=== PATIENT | female | born 1960 ===

== ENCOUNTER 2021-04-20 11:09 | Outpatient (REF) | payer MEDICARE, MEDICAID, SELFPAY ==
--- NOTE | ~2021-04-20 | XR_ITS ---
EXAMINATION: XR KNEE, LEFT CLINICAL INFORMATION: Pain COMPARISON: None TECHNIQUE: Four views of the left knee. FINDINGS: Bone alignment is normal. No fracture or dislocation is seen. The femoral tibial joints are normal. There are small osteophytes at the patellofemoral joint. There is no joint effusion. XR/XR knee LT 4V IMPRESSION: Small osteophytes at the patellofemoral joint otherwise unremarkable exam.
== END 2021-04-20 11:10 | disposition home or self-care (01) ==
LOC: HO.XRAY 11:09
PROVIDERS: PCP Internal Medicine Geriatric Medicine; Visit Provider Internal Medicine Geriatric Medicine
DX: M25.562 Pain in left knee (principal)
CPT/HCPCS: 73564

== ENCOUNTER 2021-06-24 10:41 | Outpatient (REF) | payer MEDICARE, MEDICAID, SELFPAY ==
--- NOTE | ~2021-06-24 | MM_ITS ---
EXAMINATION: MM SCREENING DIGITAL BREAST TOMOSYNTHESIS, BILATERAL CLINICAL INFORMATION: Screening. Asymptomatic. The lifetime risk of breast cancer based on the Tyrer-Cuzick Model is 11.2%. COMPARISON: Mammography: January 05, 2018 and studies dating back to December 09, 2016 TECHNIQUE: Digital breast tomosynthesis is performed in both the craniocaudal and mediolateral oblique views along with computer-aided detection (CAD). Synthesized 2D images are generated from the tomosynthesis. FINDINGS: The breasts are heterogeneously dense, which may obscure small masses (ACR BI-RADS breast composition Category c). There are no significant masses, abnormal calcifications, or other abnormalities. MM/MM tomosynthesis screening BI IMPRESSION: There are no significant changes from prior study. ASSESSMENT: BI-RADS 1: Negative RECOMMENDATION: Routine annual mammography screening. This patient's information was entered into a reminder system with a target due date for their next mammogram.
== END 2021-06-24 10:42 | disposition home or self-care (01) ==
LOC: HO.MAMMO 10:41
PROVIDERS: Visit Provider Internal Medicine Geriatric Medicine
DX: Z12.31 Encounter for screening mammogram for malignant neoplasm of breast (principal)
CPT/HCPCS: 77063; 77067

== ENCOUNTER 2021-07-12 11:53 | Outpatient (REF) | payer MEDICARE, MEDICAID, SELFPAY ==
--- NOTE | ~2021-07-12 | US_ITS ---
EXAMINATION: US DIAGNOSTIC ULTRASOUND BREAST, LEFT CLINICAL INFORMATION: Recent diffuse left breast pain, now resolved. Slight puckering lower areola at clinical exam. No palpable concern noted by patient. No discharge. Recent mammography unremarkable. TC score 11%. COMPARISON: Digital breast tomosynthesis 06/24/2021, 01/05/2018, digital mammography 12/18/2017, and outside digital mammography 12/09/2016 ([place]). TECHNIQUE: Ultrasound of the left breast is performed including all 4 quadrants and retroareolar region. Grayscale imaging and color Doppler are performed without and with harmonics. FINDINGS: There is no focal suspicious finding. There is no cystic or solid mass, architectural abnormality, duct ectasia, or edema in the soft tissue planes. Review of recent mammography shows no significant change from prior studies. Results are discussed with the patient at time of visit. Patient notes no pain today and no discharge or palpable concern. Patient to follow-up with her provider as needed. If clinically indicated, referral for surgical consult may be considered for further assessment. US/US breast LT limited IMPRESSION: Normal study. ASSESSMENT: BI-RADS 1: Negative RECOMMENDATION: 1. Patient should be managed based on the clinical impression. If clinically indicated, further evaluation may be considered with surgical consult. Decision to proceed with biopsy should be based on clinical grounds and degree of clinical concern. 2. Otherwise, routine annual screening mammography. This patient's information was entered into a reminder system with a target due date for their next mammogram.
== END 2021-07-12 11:54 | disposition home or self-care (01) ==
LOC: HO.MAMMO 11:53
PROVIDERS: Visit Provider Internal Medicine Geriatric Medicine
DX: N64.4 Mastodynia (principal)
CPT/HCPCS: 76642

== ENCOUNTER 2021-09-30 10:23 | Outpatient (REF) | payer MEDICARE, MEDICAID, SELFPAY ==
--- NOTE | ~2021-09-30 | XR_ITS ---
EXAMINATION: XR CHEST CLINICAL INFORMATION: Shortness of breath. History of Covid 19 infection. COMPARISON: CXR from 09/24/2019 TECHNIQUE: 2 views of the chest were obtained. FINDINGS: Lungs are well expanded and clear. No consolidation or pleural effusion. Cardiac silhouette is normal in size. Sternotomy wires are intact. Implantable cardioverter defibrillator generator with intact transvenous leads extending to the right atrium, right ventricle and along the coronary sinus to the left ventricle. There is mild hyperkyphosis of the chronically degenerated thoracic spine. XR/XR chest 2V IMPRESSION: No evidence of pneumonia. No acute cardiopulmonary findings compared to 09/24/2019.
== END 2021-09-30 10:24 | disposition home or self-care (01) ==
LOC: HO.XRAY 10:23
PROVIDERS: PCP Internal Medicine Geriatric Medicine; Visit Provider Internal Medicine Geriatric Medicine
DX: R06.02 Shortness of breath (principal); Z86.16 Personal history of COVID-19
CPT/HCPCS: 71046

== ENCOUNTER 2022-02-08 11:28 | Outpatient (REF) | payer MEDICARE, MEDICAID, SELFPAY ==
[2022-02-08 14:20] LABS: CT PCR NOT DETECTED (Not Detect.); NG PCR NOT DETECTED (Not Detect.)
[2022-02-11 04:32] LABS: HPV mRNA E6/E7 rflx Not Detected (Not Detected)
== END 2022-02-08 11:29 | disposition home or self-care (01) ==
LOC: HO.LAB 11:28
PROVIDERS: Visit Provider Advanced Practice Midwife
DX: Z01.419 Encounter for gynecological examination (general) (routine) without abnormal findings (principal); Z11.51 Encounter for screening for human papillomavirus (HPV); Z20.2 Contact with and (suspected) exposure to infections with a predominantly sexual mode of transmission
CPT/HCPCS: 87491; 87591; 87624; 88142

== ENCOUNTER 2022-03-23 14:21 | Outpatient (REF) | payer MEDICARE, MEDICAID, SELFPAY ==
--- NOTE | ~2022-03-23 | US_ITS ---
EXAMINATION: US PELVIS CLINICAL INFORMATION: Pelvic and perineal pain COMPARISON: None TECHNIQUE: Ultrasound of the pelvis is performed using both transabdominal and transvaginal transducers along with Doppler. Transvaginal imaging is performed due to inadequate visualization transabdominally. FINDINGS: Uterus: The uterus is anteverted and measures 6.4 x 2.4 x 3.4 cm. The estimated cervical length is approximately 2.4 cm. There are some small nabothian cysts. The cervix otherwise within normal limits The double wall endometrial thickness is 3 mm. There is a small amount of fluid within the endometrial cavity. This outlines a smooth endometrium The uterine contour is smooth. There is some heterogeneity of the myometrium without a discrete mass. No visible fibroid. Adnexa: The right ovary is visualized. There is no suspicious color signal. There is a spherical structure in the left adnexa with a bright echogenic rim and some attenuation of sound. No suspicious color signal. There is no pelvic ascites or fluid collection. No additional suspicious adnexal mass Right ovary measures 1.9 x 0.9 x 1.2 cm. There is an approximately 1 cm cyst with no suspicious features which does not require any further evaluation There is a circumscribed spherical 0.7 cm structure in the left adnexa with a bright echogenic rim that measures 0.8 cm. No measurable solid left adnexal mass elsewhere. US/US pelvic and transvaginal IMPRESSION: No suspicious abnormality of the uterus or right ovary. There is a circumscribed spherical structure in the left adnexa with a bright rim. I doubt this is of clinical significance. Depending upon the patient's symptoms a follow-up study may be helpful to confirm stability
== END 2022-03-23 14:22 | disposition home or self-care (01) ==
LOC: HO.HMGCX 14:21
PROVIDERS: PCP Internal Medicine Geriatric Medicine; Visit Provider Advanced Practice Midwife
DX: R10.2 Pelvic and perineal pain (principal)
CPT/HCPCS: 76830; 76856

== ENCOUNTER → 2022-04-11 11:19 | Outpatient (BNVA) | payer MEDICARE, MEDICAID, SELFPAY | PROVIDERS: PCP Internal Medicine Geriatric Medicine; Visit Provider Advanced Practice Midwife | DX: Z71.2 Person consulting for explanation of examination or test findings (principal); R10.2 Pelvic and perineal pain; R93.5 Abnormal findings on diagnostic imaging of other abdominal regions, including retroperitoneum | CPT/HCPCS: 99212 ==

== ENCOUNTER 2023-01-26 11:41 | Outpatient (REF) | payer MEDICARE, MEDICAID, SELFPAY ==
--- NOTE | ~2023-01-26 | XR_ITS ---
EXAMINATION: XR ANKLE, LEFT CLINICAL INFORMATION: Pain for 2 weeks. No injury. COMPARISON: None available. TECHNIQUE: AP, lateral, and mortise views of the left ankle. XR/XR ankle LT min 3V FINDINGS/IMPRESSION: Tiny calcification associated with the insertion of the Achilles tendon on the calcaneus may represent small calcific tendinitis versus calcific bursitis. No fracture appreciated. Alignment is anatomic. Joint spaces are maintained. No joint effusion.
--- NOTE | ~2023-01-26 | XR_ITS ---
EXAMINATION: XR KNEE, RIGHT XR KNEE, LEFT CLINICAL INFORMATION: Bilateral knee pain for 2 weeks. COMPARISON: None available. TECHNIQUE: Four views of the right knee. Four views of the left knee. FINDINGS: Right: Bones and soft tissues appear unremarkable. No fracture or joint effusion appreciated. Alignment is anatomic. Joint spaces are well maintained. No abnormal soft tissue calcification. Left: Bones and soft tissues appear unremarkable. No fracture or joint effusion appreciated. Alignment is anatomic. Joint spaces are well maintained. No abnormal soft tissue calcification. XR/XR knee LT 4V IMPRESSION: Normal plain film examinations of the knees.
--- NOTE | ~2023-01-26 | XR_ITS ---
EXAMINATION: XR KNEE, RIGHT XR KNEE, LEFT CLINICAL INFORMATION: Bilateral knee pain for 2 weeks. COMPARISON: None available. TECHNIQUE: Four views of the right knee. Four views of the left knee. FINDINGS: Right: Bones and soft tissues appear unremarkable. No fracture or joint effusion appreciated. Alignment is anatomic. Joint spaces are well maintained. No abnormal soft tissue calcification. Left: Bones and soft tissues appear unremarkable. No fracture or joint effusion appreciated. Alignment is anatomic. Joint spaces are well maintained. No abnormal soft tissue calcification. XR/XR knee RT 4V IMPRESSION: Normal plain film examinations of the knees.
--- NOTE | ~2023-01-26 | XR_ITS ---
EXAMINATION: XR LUMBOSACRAL SPINE CLINICAL INFORMATION: Abdominal pain for 2 weeks. No injury. COMPARISON: None available. TECHNIQUE: Three views of the lumbosacral spine. FINDINGS: The vertebral bodies and posterior elements appear unremarkable. The disc spaces appear preserved. Mild lumbar levocurvature. The paraspinal soft tissues are normal. Partially imaged median sternotomy and pulse generator device leads. XR/XR lumbar spine 2-3V IMPRESSION: Unremarkable examination.
== END 2023-01-26 11:42 | disposition home or self-care (01) ==
LOC: HO.HHCX 11:41
PROVIDERS: Visit Provider Internal Medicine Geriatric Medicine
DX: M25.561 Pain in right knee (principal); M25.562 Pain in left knee; R60.0 Localized edema; M54.50 Low back pain, unspecified; M25.572 Pain in left ankle and joints of left foot
CPT/HCPCS: 72100; 73564; 73610

== ENCOUNTER 2023-03-03 13:34 | Outpatient (REF) | payer MEDICARE, MEDICAID, SELFPAY | END 2023-03-03 13:35 | disposition home or self-care (01) | LOC: HO.LNP 13:34 | PROVIDERS: PCP Internal Medicine Geriatric Medicine; Visit Provider Advanced Practice Midwife | DX: Z01.419 Encounter for gynecological examination (general) (routine) without abnormal findings (principal); R35.0 Frequency of micturition | CPT/HCPCS: 87086; G0101 ==

== ENCOUNTER 2023-03-03 13:34 | Outpatient (AMB) | payer MEDICARE, MEDICAID, SELFPAY ==
[2023-03-03 13:56] VITALS: BP 110/70; BMI 35.7
--- NOTE | 2023-03-03 13:56 | MHC.OFFVIS ---
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 Scribed for PAUL Calvillo by Afia Lucas medical information officer, on 03/03/2023 at 2:27 pm EST. 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 Patient admits she tries to eat a healthy diet but does not include Calcium and Vitamin D. She stays active with exercise. Hx of osteoarthritis; was prescribed Calcium Rx in the past and upset her stomach. Complains of frequent urination. Admits to drinking 2 cups of coffee and half a can of soda a day. Denies vaginal itching and irritation. Denies family hx of colon and ovarian cancer. Last pap smear 02/08/22 Last mammogram 06/24/21 UTD on colonoscopy. PFSH Medical History Asthma Cardiac pacemaker Cardiomegaly Frequency of urination H/O bipolar disorder High cholesterol History of fibromyalgia Hx of migraine headaches Myasthenia gravis Osteoarthritis Systolic dysfunction Surgical History H/O thymectomy Hx of tubal ligation Family History Paternal Grandmother History of breast cancer Social History Alcohol intake: never Patient Tobacco Use Status: Never used Tobacco Female Reproductive History Menstrual Age of Menarche: 12 control method: permanent sterilization Total pregnancies: 5 Full term: 4 Number of Living Children: 4 Ab spontaneous: 1 Date of last pap smear: 02/08/22 (negative) Date of Mammogram: 06/24/21 Physical Exam Vital Signs: Last Vital Signs BP 110/70 03/03/23 13:56 BMI result Body Mass Index 35.7 Const General: cooperative, healthy appearing, no acute distress, well developed and alert Orientation/consciousness: patient oriented x3 HEENT Head: Yes normal to inspection Eyes General: appearance normal, both eyes and all related structures Neck Neck: Yes normal visual inspection Thyroid: Thyroid normal Chest Chest palpation & inspection: normal inspection of the chest Breast/axilla inspection: normal inspection of the breasts (no puckering, dimpling, peau de orange, retraction, discharge, masses) Breast/axilla palpation: normal palpation of the breasts Resp Effort & Inspection: normal respiratory effort GI Inspection: Yes normal to inspection Palpation (GI): Soft to palpation (to palpation) Rectal Exam - Female: deferred General: Yes bladder normal to inspection External Female Exam: normal external appearance and other (urethral caruncle) Speculum Exam - Vagina: normal appearance of the vagina, normal palpation and normal vaginal discharge Speculum Exam - Cervix: normal appearance of the cervix and normal palpation Bimanual exam- vagina & uterus: normal palpation and normal palpation Bimanual Exam- Adnexa, other: normal adnexae and no masses Skin General skin exam: no rashes or lesions noted Neuro General: patient oriented x3 Cognition (Neuro): normal cognition Extrem General: Yes normal to inspection Psych Attitude: cooperative Thought process: Normal thought process present Results AMB Urinalysis Dipstick UR Leukocytes Negative Last Edit by Salma Allen CMA on 03/03/23 15:10 UR Nitrite Negative Last Edit by Salma Allen CMA on 03/03/23 15:10 UR Urobilinogen Normal Last Edit by Salma Allen CMA on 03/03/23 15:10 UR Protein Negative Last Edit by Salma Allen CMA on 03/03/23 15:10 UR Ph 6.5 Last Edit by Salma Allen CMA on 03/03/23 15:10 UR Blood Moderate Last Edit by Salma Allen CMA on 03/03/23 15:10 UR Specific [place] 1.015 Last Edit by Salma Allen CMA on 03/03/23 15:10 UR Ketone Negative Last Edit by Salma Allen CMA on 03/03/23 15:10 UR Bilirubin Negative Last Edit by Salma Allen CMA on 03/03/23 15:10 UR Glucose Negative Last Edit by Salma Allen CMA on 03/03/23 15:10 Results Reviewed Results Reviewed: Laboratory Last Values Urine pH (Clinic) 6.5 03/03/23 15:09 Specific [place] (Clinic) 1.015 03/03/23 15:09 Ur Protein (Clinic) Negative 03/03/23 15:09 Ur Ketones (Clinic) Negative 03/03/23 15:09 Urine Blood (Clinic) Moderate 03/03/23 15:09 Urine Nitrite Negative 03/03/23 15:09 Urine Bilirubin (Clinic) Negative 03/03/23 15:09 Urobilinogen (Clinic) Normal 03/03/23 15:09 Leukocyte Esterase (Clinic) Negative 03/03/23 15:09 Urine Glucose (Clinic) Negative 03/03/23 15:09 Assessment & Plan Assessment & Plan (1) Encounter for annual routine gynecological examination: Code(s): Z01.419 - Encounter for gynecological examination (general) (routine) without abnormal findings Plan: Discussed: Current recommendations for pap smears per ASCCP guidelines. Breast awareness and periodic self breast exams. Encouraged yearly mammograms. Mammogram ordered. Maintaining a healthy lifestyle including a well balanced diet including Calcium and Vitamin D and routine exercise. Recommend consulting with pharmacist for Calcium and Vitamin D supplements that are covered by insurance. Contact office to have supplements prescribed. Encourages to stop drinking caffeine, carbonate drinks and artificial sweeteners. Hydrate well with water only. Referral sent to Urologist. Contact office with any PMB. All of her questions and concerns were addressed to the best of my ability RTO in 1 year for AG. (2) Frequency of urination: Code(s): R35.0 - Frequency of micturition Orders: Orders MM tomosynthesis screening BI Today Z12.31 - Encounter for screening mammogram for malignant neoplasm of breast Urine Culture Today R35.0 - Frequency of micturition Referrals Urology Referral R35.0 - Frequency of micturition Coding Level of Care Code Est Pt Prev Care 40-64y(23612) Diagnoses Encounter for annual routine gynecological examination Z01.419 Frequency of urination R35.0
== END 2023-03-03 14:47 | disposition home or self-care (01) ==
LOC: HO.HWS 13:34
PROVIDERS: PCP Internal Medicine Geriatric Medicine; Visit Provider Advanced Practice Midwife
DX: Z01.419 Encounter for gynecological examination (general) (routine) without abnormal findings (principal); R35.0 Frequency of micturition
CPT/HCPCS: G0101

== ENCOUNTER 2023-03-24 12:54 | Outpatient (REF) | payer MEDICARE, MEDICAID, SELFPAY ==
--- NOTE | ~2023-03-24 | MM_ITS ---
EXAMINATION: MM SCREENING DIGITAL BREAST TOMOSYNTHESIS, BILATERAL CLINICAL INFORMATION: Screening. Asymptomatic. COMPARISON: Mammography: This study is compared with prior exams dating back to 2018. TECHNIQUE: Digital breast tomosynthesis is performed in both the craniocaudal and mediolateral oblique views along with computer-aided detection (CAD). Synthesized 2D images are generated from the tomosynthesis. FINDINGS: There are scattered areas of fibroglandular density (ACR BI-RADS breast composition Category b). There are no significant masses, abnormal calcifications, or other abnormalities. A pacemaker overlies the superior aspect breast. There are tissue markers present in each breast from prior benign percutaneous biopsies. MM/MM tomosynthesis screening BI IMPRESSION: No mammographic evidence of malignancy. ASSESSMENT: BI-RADS BI-RADS 2 - Benign Findings RECOMMENDATION: Routine annual mammography screening. 1 year F/U This examination should not preclude the clinical evaluation of a suspicious palpable abnormality. This patient's information was entered into a reminder system with a target due date for their next mammogram.
== END 2023-03-24 12:55 | disposition home or self-care (01) ==
LOC: HO.MAMMO 12:54
PROVIDERS: PCP Internal Medicine Geriatric Medicine; Visit Provider Advanced Practice Midwife
DX: Z12.31 Encounter for screening mammogram for malignant neoplasm of breast (principal)
CPT/HCPCS: 77063; 77067

== ENCOUNTER → 2023-03-24 13:15 | Outpatient (BNV) | payer MEDICARE, MEDICAID, SELFPAY | PROVIDERS: PCP Internal Medicine Geriatric Medicine; Visit Provider Radiology Diagnostic Radiology | DX: Z12.31 Encounter for screening mammogram for malignant neoplasm of breast (principal) | CPT/HCPCS: 77063; 77067 ==

== ENCOUNTER 2023-04-27 10:44 | Outpatient (AMB) | payer MEDICARE, MEDICAID, SELFPAY ==
--- NOTE | 2023-04-27 10:46 | MHC.OFFVIS ---
Intake Intake Visit Reasons: Frequency of micturition Allergies Accutane Allergy (Unknown, Uncoded 04/27/23 10:46) Unknown latex Allergy (Unknown, Uncoded 04/27/23 10:46) Unknown Medication List - Last Reconciled 04/27/23 by Susana Gaviria MD acetazolamide mg PO albuterol sulfate 90 mcg/actuation (Ventolin HFA) inhalation apixaban (Eliquis) mg PO ONCE sxdhchfhid-znqztvudhqtvn-omiz 50-325-40 mg caps PO ONCE PRN diclofenac sodium 1% topical doxycycline monohydrate mg PO DAILY gabapentin mg PO DAILY lamotrigine mg PO DAILY losartan mg PO DAILY montelukast mg PO DAILY mycophenolate mofetil PO mycophenolate mofetil mg PO omeprazole mg PO DAILY pravastatin mg PO DAILY pyridostigmine bromide mg PO ONCE quetiapine mg PO DAILY sotalol mg PO ONCE spironolactone mg PO DAILY tramadol mg PO DAILY valacyclovir mg PO DAILY vibegron (Gemtesa) 75 mg PO DAILY HPI HPI Comments History of Present Illness Details Malissa is a 62-year-old female who presents today to the office to establish as a new patient for an evaluation of frequency micturition. 04/27/2023? She is present today for an evaluation of frequency of micturition. Patient has a past medical history of significant for cardiac pacemaker. She has a history of fibromyalgia, history of osteoarthritis, and history of bipolar. She was referred to the urology office by her Rate Clerk. She mentions having urinary frequency. Patient states that she is urinating 3-4 times for every ? an hour during the day. She reports nocturia x 3. Patient also has on and off mild urine leakage at this time. She is wearing pads occasionally when she goes out. I reviewed the urine culture results from 03/03/2023 which came back < 10,000 cfu/ml. Evaluation today?UA? leukocytes: negative; blood: 1 +; bladder scan PVR: 13 mL. Plan: Gemtesa 75 mg daily was ordered. CTAP +/- IV was ordered Follow-up in office Cystoscopy. [facility] Medical History Frequency of urination Cardiac pacemaker Systolic dysfunction High cholesterol Cardiomegaly History of fibromyalgia Osteoarthritis H/O bipolar disorder Myasthenia gravis Hx of migraine headaches Asthma Surgical History Hx of tubal ligation H/O thymectomy Family History Paternal Grandmother History of breast cancer Social History Alcohol intake: never Patient Tobacco Use Status: Never used Tobacco Female Reproductive History Menstrual Age of Menarche: 12 Review of Systems Const All systems reviewed & are unremarkable except as noted in HPI and below Reports no additional complaints Eyes Reports no additional complaints ENT Reports no additional complaints Card Denies dyspnea Resp Denies cough and Denies dyspnea GI Reports no additional complaints Reports no additional complaints Musc Reports no additional complaints Skin/Breast Denies rash and Denies unusual bruising Neuro Reports no additional complaints Psych Reports no additional complaints Endo Reports no additional complaints Per/Lymph Reports no additional complaints Aller/Immun Reports no additional complaints Physical Exam Const General: cooperative, healthy appearing and no acute distress Orientation/consciousness: patient oriented x3 HEENT Head: Yes normal to inspection, Yes normocephalic and Yes atraumatic Eyes Conjunctivae: conjunctivae normal Neck Neck: Yes normal visual inspection and Yes trachea midline Chest Chest palpation & inspection: normal inspection of the chest Resp Effort & Inspection: normal respiratory effort Cardio Rate: regular rate GI Inspection: Yes normal to inspection Palpation (GI): Soft to palpation Skin General skin exam: no rashes or lesions noted Neuro General: patient oriented x3 Extrem General: No edema Psych Appearance: grossly normal Office Procedures Post Void Residual Post Residual Void Post Void Residual (PVR): 13 [id number] Void Residual by ultrasound Results AMB Urinalysis, Automated UA Leukoctes Rahul/uL Last Edit by Brigida Garcia CMA on 04/27/23 11:02 UA Nitrite Last Edit by Brigida Garcia CMA on 04/27/23 11:02 UA Urobilinogen 0.2 mg/dL Last Edit by Brigida Garcia CMA on 04/27/23 11:02 UA Protein mg/dL Last Edit by Brigida Garcia CMA on 04/27/23 11:02 UA pH 5.0 Last Edit by Brigida Garcia CMA on 04/27/23 11:02 UA Blood 25 Aj/uL Last Edit by Brigida Garcia CMA on 04/27/23 11:02 UA Specific [place] 1.025 Last Edit by Brigida Garcia CMA on 04/27/23 11:02 UA Ketone Last Edit by Brigida Garcia CMA on 04/27/23 11:02 UA Bilirubin mg/dL Last Edit by Brigida Garcia CMA on 04/27/23 11:02 UA Glucose mg/dL Last Edit by Brigida Garcia CMA on 04/27/23 11:02 Results Reviewed Results Reviewed: Laboratory Last Values Urine pH (Auto) 5.0 04/27/23 11:00 Specific [place] (Auto) 1.025 04/27/23 11:00 Urine Blood (Auto) 25 Aj/uL 04/27/23 11:00 Urine Urobilinogen (Auto) 0.2 mg/dL 04/27/23 11:00 Ordered:? Urine Culture? Procedure?Result?Verified?Site ? Urine Culture? Final?03/05/23-1249 ? Report Result?< 10,000 cfu/ml. Assessment & Plan Assessment & Plan (1) Frequency of urination: Code(s): R35.0 - Frequency of micturition (2) Pelvic pain in female: Code(s): R10.2 - Pelvic and perineal pain Plan Gemtesa 75 mg daily was ordered. CTAP +/- IV was ordered Follow-up in office Cystoscopy. Orders: Orders AMB Urinalysis Automated 04/27/23 R35.0 - Frequency of micturition AMB Post Void Residual by ultrasound 04/27/23 R35.0 - Frequency of micturition Medications: New vibegron (Gemtesa) 75 mg PO DAILY 90 tabs 1RF Patient Instructions: The patient had an opportunity to ask questions regarding treatment plan. All questions were answered. Imaging, Laboratory studies and physical exam results were discussed and reviewed in detail. No major barriers to understanding were identified. The patient expressed understanding and agreement with the above treatment plan.? ? ? The patient is aware they should contact our office by phone for worsening of their current condition or the appearance of new symptoms. Compliance is encouraged with any medications and followup testing that is ordered.? ? ? It is a privilege to be allowed the opportunity to participate in the urologic care of your patient. If you have any questions or concerns regarding treatment for the above conditions please do not hesitate to contact me. The office telephone contact is [phone].? ? ? This note is constructed in part using voice recognition software. While every effort has been made to ensure accuracy feeder operator errors may have been included.? ? ? Yours sincerely,? ? ? Susana Gaviria MD? ? Coding Level of Care Code New Pt Level 4 (82153) Diagnoses Frequency of urination R35.0 Pelvic pain in female R10.2 CPT Codes Post Residual Void - PVR CPT Code: 56741-Qvut Void Residual by ultrasound ([id number])
== END 2023-04-27 12:03 | disposition home or self-care (01) ==
PROVIDERS: PCP Internal Medicine Geriatric Medicine; Visit Provider Urology
DX: R35.0 Frequency of micturition (principal); R10.2 Pelvic and perineal pain
CPT/HCPCS: 99204

== ENCOUNTER → 2023-04-27 10:44 | Outpatient (BNVA) | payer MEDICARE, MEDICAID, SELFPAY | PROVIDERS: PCP Internal Medicine Geriatric Medicine; Visit Provider Urology | DX: R35.0 Frequency of micturition (principal); R10.2 Pelvic and perineal pain | CPT/HCPCS: 51798; 81003; 99202 ==

== ENCOUNTER 2023-07-10 09:50 | Outpatient (REF) | payer MEDICARE, MEDICAID, SELFPAY ==
--- NOTE | ~2023-07-10 | CT_ITS ---
EXAMINATION: CT ABDOMEN AND PELVIS WITHOUT AND WITH CONTRAST CLINICAL INFORMATION: Hematuria. COMPARISON: Renal ultrasound dated 07/12/2023; abdominal ultrasound dated 05/07/2019. TECHNIQUE: Multidetector volumetric imaging was performed of the abdomen and pelvis before and after the IV administration of 85 mL of Omnipaque 350 intravenous contrast. Sagittal and coronal reformatted images were obtained on the technologist's workstation. This CT examination was performed using dose optimization techniques as appropriate, variously including the following: *Automated exposure control *Adjustment of mA and/or kV according to patient size (this includes techniques or standardized protocols for targeted exams where dose is matched to indication/reason for exam; i.e. extremities or head) *Use of iterative reconstruction technique DLP: 6065 mGy-cm FINDINGS: LUNG BASES: The visualized lung bases are unremarkable. Pacemaker leads are noted. LIVER, GALLBLADDER, AND BILIARY TREE: The liver is normal in size, shape, and attenuation. There are several simple appearing hepatic cysts again seen, consistent with prior ultrasound findings. No new focal hepatic lesion or biliary ductal dilatation is present. The gallbladder is unremarkable with no evidence of radiopaque gallstones, gallbladder wall thickening, or obvious pericholecystic inflammatory changes. PANCREAS: Unremarkable SPLEEN: Unremarkable ADRENAL GLANDS: Unremarkable KIDNEYS AND URETERS: The kidneys are normal in size, shape, and attenuation. There are extrarenal pelves. No onesimo hydronephrosis, hydroureter, or calculi seen. A 5 mm benign, fat density angiomyolipoma is noted at the interpolar aspect of the right kidney laterally (4:56 and 11:180), corresponding with the ultrasound finding. No perinephric stranding. BLADDER: Unremarkable GASTROINTESTINAL TRACT: The small and large bowel are unremarkable. The vermiform appendix is unremarkable. ABDOMINAL WALL: There is a tiny fat-containing umbilical hernia. LYMPH NODES: There are shotty, nonpathologically enlarged pericecal lymph nodes. No sizable abdominopelvic adenopathy is seen. VASCULAR: Unremarkable PELVIC VISCERA: The uterus and adnexa are unremarkable. OSSEOUS STRUCTURES: There is moderate degenerative disc disease at T11-T12 and L5-S1, with vacuum disc phenomenon. No acute or aggressive osseous finding is noted. CT/CT abdomen pelvis wo/w IV con IMPRESSION: 1. A 5 mm mid right renal benign angiomyolipoma is redemonstrated. 2. No urinary calculus or obstruction is seen bilaterally. There are extrarenal pelves. 3. There is moderate degenerative disc disease at T11-T12 and L5-S1. Fleischner guidelines were followed.
[2023-07-10] MEDS: iohexoL 350 MG/ML 75 ML INFUS..BTL 85 ML IV (12:13)
[2023-07-10 13:00] LABS: Creatinine POC 0.9 mg/dL (0.5-1.4); GFR POC > 60
== END 2023-07-10 09:51 | disposition home or self-care (01) ==
LOC: HO.US 09:50
PROVIDERS: PCP Internal Medicine Geriatric Medicine; Visit Provider Urology
DX: R31.29 Other microscopic hematuria (principal); R35.0 Frequency of micturition
CPT/HCPCS: 73700; 74178; 82565; Q9967

== ENCOUNTER 2023-07-12 10:38 | Outpatient (REF) | payer MEDICARE, MEDICAID, SELFPAY ==
--- NOTE | ~2023-07-12 | CT_ITS ---
EXAMINATION: CT left knee CLINICAL INFORMATION: Chronic pain COMPARISON: X-ray 01/25/2023 TECHNIQUE: Axial imaging. No contrast. Sagittal and coronal reconstructions. FINDINGS: Alignment is anatomic. Joint spaces are relatively maintained. Small marginal spurs in the medial compartment. Cyst subchondral sclerosis/cysts in the lateral margin of the lateral tibial plateau. Tiny marginal patellar spurs, with subtle subchondral cysts in the median ridge. No evidence of acute fracture or dislocation. No significant joint effusion. Quadriceps and patellar tendon are grossly intact. No obvious muscle tear seen, however, evaluation is limited on CT. CT/CT knee LT wo IV con IMPRESSION: Mild degenerative changes. No evidence of acute fracture or dislocation. If there is clinical concern for intra-articular derangement, MR is more sensitive.
--- NOTE | ~2023-07-12 | US_ITS ---
EXAMINATION: US RETROPERITONEAL COMPLETE (RENAL) CLINICAL INFORMATION: Other microscopic hematuria. COMPARISON: CT abdomen and pelvis 07/10/2023. Ultrasound abdomen 05/07/2019. TECHNIQUE: Real-time imaging of the kidneys and bladder. FINDINGS: RIGHT KIDNEY: 11.0 x 4.4 x 5.1 cm (SAG x AP x TRV). The kidney is normal in size, contour, and echogenicity. Renal cortical thickness is normal. No calculi or focal parenchymal lesions. No hydronephrosis. LEFT KIDNEY: 10.6 x 5.6 x 4.7 cm (SAG x AP x TRV). The kidney is normal in size, contour, and echogenicity. Renal cortical thickness is normal. No renal calculi or hydronephrosis. Cortically based echogenic focus measuring 0.7 x 0.8 x 0.9 cm at the midpole. BLADDER: Well distended and normal. Bilateral ureteral jets are demonstrated. Prevoid bladder volume is 213 mL. Postvoid bladder volume is 24 mL. US/US retroperitoneal comp IMPRESSION: Possible angiomyolipoma midpole left kidney measuring 0.7 x 0.8 x 0.9 cm.
[2023-07-12 12:27] LABS: Blood Urea Nitrogen 13 mg/dL (9-16); Estimated Glomerular Filt Rate > 60
== END 2023-07-12 10:39 | disposition home or self-care (01) ==
LOC: HO.US 10:38
PROVIDERS: Absent Provider Urology; PCP Internal Medicine Geriatric Medicine; Visit Provider Internal Medicine
DX: R31.29 Other microscopic hematuria (principal); R35.0 Frequency of micturition; R10.2 Pelvic and perineal pain
CPT/HCPCS: 36415; 73700; 76770; 82565; 84520

== ENCOUNTER 2023-09-14 09:49 | Outpatient (AMB) | payer MEDICARE, MEDICAID, SELFPAY ==
[2023-09-14 10:10] VITALS: BMI 35.7
--- NOTE | 2023-09-14 10:10 | MHC.OFFVIS ---
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 Patient reports her pain had been going on for about 5 months is a 3 on the 1-10 pain scale. She denies any injury and has used Tylenol and tramadol that help a little. She denies any locking or giving way. She has not been to physical therapy. Allergies Accutane Allergy (Unknown, Uncoded 04/27/23 10:46) Unknown latex Allergy (Unknown, Uncoded 04/27/23 10:46) Unknown Medication List - Last Reconciled 09/14/23 by Paul Felton MD acetazolamide mg PO albuterol sulfate 90 mcg/actuation (Ventolin HFA) inhalation apixaban (Eliquis) mg PO ONCE [id number]-[id number] 50-325-40 mg caps PO ONCE PRN diclofenac sodium 1% topical doxycycline monohydrate mg PO DAILY gabapentin mg PO DAILY lamotrigine mg PO DAILY losartan mg PO DAILY montelukast mg PO DAILY mycophenolate mofetil PO mycophenolate mofetil mg PO omeprazole mg PO DAILY pravastatin mg PO DAILY pyridostigmine bromide mg PO ONCE quetiapine mg PO DAILY sotalol mg PO ONCE spironolactone mg PO DAILY tramadol mg PO DAILY valacyclovir mg PO DAILY vibegron (Gemtesa) 75 mg PO DAILY PFSH Medical History Frequency of urination Cardiac pacemaker Systolic dysfunction High cholesterol Cardiomegaly History of fibromyalgia Osteoarthritis H/O bipolar disorder Myasthenia gravis Hx of migraine headaches Asthma Surgical History Hx of tubal ligation H/O thymectomy Family History Paternal Grandmother History of breast cancer Social History Alcohol intake: never Patient Tobacco Use Status: Never used Tobacco Female Reproductive History Menstrual Age of Menarche: 12 Physical Exam Vital Signs: BMI result Body Mass Index 35.7 Const Other: Well-nourished well-developed very friendly female awake alert and oriented x3 in no acute distress Extrem Other: Bilateral lower extremity examination shows good capillary refill, no skin lesions noted, normal sensation light touch Left knee examination shows a minimal effusion, mild crepitus with range of motion, tenderness along her medial joint line, positive Galilea's test, no instability Results Reviewed Results Reviewed: X-rays of the patient's left knee show mild diffuse joint space narrowing, no acute bony abnormalities The patient can not have an MRI because of her pacemaker Assessment & Plan Assessment & Plan (1) Left knee pain: Code(s): M25.562 - Pain in left knee Plan Ms. Franco presents with left knee pain due to early degenerative joint disease as well as possible medial meniscus tearing and iliotibial band syndrome. I had a lengthy discussion with the patient regarding the treatment options. She wishes to hold off on surgery for as long as possible. I agree with this plan. I did give her a prescription to go to formal physical therapy. Activity modifications were also discussed at length with the patient. She will follow up with me on an as-needed basis should her symptoms not plateau at an unacceptable level over the next few months. Feel free to call me at any time should questions regarding her orthopedic management arise. I spent 22 minutes in reviewing the patient's records and imaging studies, seeing the patient and documenting in the medical record. Orders: Orders PT Evaluation and Treatment Today M25.562 - Pain in left knee Coding Level of Care Code New Pt Level 2 (06921) Diagnoses Left knee pain M25.562
== END 2023-09-14 10:45 | disposition home or self-care (01) ==
PROVIDERS: PCP Internal Medicine Geriatric Medicine; Visit Provider Orthopaedic Surgery
DX: M25.562 Pain in left knee (principal)
CPT/HCPCS: 99202

== ENCOUNTER → 2023-09-14 09:49 | Outpatient (BNVA) | payer MEDICARE, MEDICAID, SELFPAY | PROVIDERS: PCP Internal Medicine Geriatric Medicine; Visit Provider Orthopaedic Surgery | DX: M17.12 Unilateral primary osteoarthritis, left knee (principal) | CPT/HCPCS: 99202 ==

== ENCOUNTER 2024-01-23 11:44 | Outpatient (REF) | payer MEDICARE, MEDICAID, SELFPAY ==
[2024-01-23 13:36] LABS: MANUAL DIFF FLAG NO
[2024-01-23 14:00] LABS: Alanine Aminotransferase 18 U/L (0-31); Albumin Level 4.3 g/dL (3.5-5.0); Alkaline Phosphatase 94 U/L (39-117); Anion Gap 10 (12-20); Aspartate Amino Transferase 23 U/L (5-31); Bilirubin Total 0.9 mg/dL (0.0-1.0); Blood Urea Nitrogen 13 mg/dL (9-16); Calcium 9.7 mg/dL (8.4-10.2); Carbon Dioxide 26 mmol/L (22-29); Chloride 109 mmol/L (96-108); Cholesterol 166 mg/dL (<200); Estimated Glomerular Filt Rate > 60; Glucose Random 92 mg/dL (60-115); HDL Cholesterol 51 mg/dL (>40); LDL Cholesterol Calculated 100 mg/dL (<100); Potassium 4.2 mmol/L (3.3-5.1); Sodium 141 mmol/L (135-145); Total Protein 7.5 g/dL (6.5-8.0); Triglycerides 79 mg/dL (<150)
[2024-01-23 14:02] LABS: Basophils Percent Auto 0.6 % (0-2); Eosinophils Absolute Auto 0.1 X10*3/uL (0.0-0.4); Eosinophils Percent Auto 1.1 % (0-4); Hematocrit 40.4 % (37.0-47.0); Hemoglobin 13.2 g/dl (12.0-16.0); Imm Gran Abs Auto 0.01 X10*3/uL (0.00-0.03); Imm Gran Pct Auto 0.2 % (0.0-0.4); Lymphocytes Absolute Auto 1.8 X10*3/uL (1.2-4.9); Lymphocytes Percent Auto 37.1 % (20-40); Mean Corpuscular HGB Conc 32.7 g/dl (31.0-35.0); Mean Corpuscular Hemoglobin 32.4 pg (27.0-33.0); Mean Corpuscular Volume 99.3 fL (80.0-98.0); Mean Platelet Volume 9.2 fL (9.4-12.3); Monocytes Absolute Auto 0.3 X10*3/uL (0.1-1.2); Monocytes Percent Auto 7.2 % (2-11); Neutrophils Absolute Auto 2.6 x10*3/uL (2.0-8.3); Neutrophils Percent Auto 53.8 % (45-73); Platelet Count 286 X10*3/uL (160-400); Red Blood Count 4.07 X10*6/uL (4.20-5.50); Red Cell Distribution Width 13.2 % (11.0-16.0); White Blood Count 4.8 X10*3/uL (4.8-10.8)
== END 2024-01-23 11:45 | disposition home or self-care (01) ==
LOC: HO.HHCL 11:44
PROVIDERS: Visit Provider Nurse Practitioner Family
DX: I10 Essential (primary) hypertension (principal); I42.9 Cardiomyopathy, unspecified
CPT/HCPCS: 36415; 80053; 80061; 85025

== ENCOUNTER 2024-05-16 10:08 | Outpatient (REF) | payer MEDICARE, MEDICAID, SELFPAY ==
[2024-05-16 11:46] LABS: Magnesium 2.1 mg/dL (1.6-2.6)
== END 2024-05-16 10:09 | disposition home or self-care (01) ==
LOC: HO.HHCL 10:08
PROVIDERS: Visit Provider Internal Medicine Geriatric Medicine
DX: R00.2 Palpitations (principal)
CPT/HCPCS: 36415; 83735

== ENCOUNTER 2024-05-22 09:58 | Outpatient (AMB) | payer MEDICARE, MEDICAID, SELFPAY ==
--- NOTE | 2024-05-22 10:02 | MHC.OFFVIS ---
Intake Visit Reasons: OV- Left knee pain Intake Note: Malissa is a 63 year old female who presents with complaints of progressively worsening left knee pain. The patient describes her pain as sharp in nature. Her pain has gotten worse over the last few months in spite of continued non operative treatments. She has tried Tylenol which gives her minimal relief. She is not able to take anti-inflammatory medicines because she is on Eliquis. She has done physical therapy exercises which aggravated her pain. She wishes to hold off on surgery if at all possible. Allergies Accutane Allergy (Unknown, Uncoded 05/22/24 10:03) Unknown latex Allergy (Unknown, Uncoded 05/22/24 10:03) Unknown Medication List - Last Reconciled 05/22/24 by Paul Felton MD acetazolamide mg PO albuterol sulfate 90 mcg/actuation (Ventolin HFA) inhalation apixaban (Eliquis) mg PO ONCE diclofenac sodium 1% topical doxycycline monohydrate mg PO DAILY gabapentin mg PO DAILY lamotrigine mg PO DAILY losartan mg PO DAILY montelukast mg PO DAILY mycophenolate mofetil PO mycophenolate mofetil mg PO omeprazole mg PO DAILY pravastatin mg PO DAILY pyridostigmine bromide mg PO ONCE quetiapine mg PO DAILY sotalol mg PO ONCE spironolactone mg PO DAILY tramadol mg PO DAILY valacyclovir mg PO DAILY PFSH Medical History Frequency of urination Cardiac pacemaker Systolic dysfunction High cholesterol Cardiomegaly History of fibromyalgia Osteoarthritis H/O bipolar disorder Myasthenia gravis Hx of migraine headaches Asthma Surgical History Hx of tubal ligation H/O thymectomy Family History Paternal Grandmother History of breast cancer Social History Alcohol intake: never Patient Tobacco Use Status: Never used Tobacco Female Reproductive History Menstrual Age of Menarche: 12 Physical Exam Const Other: Well-nourished well-developed very friendly female awake alert and oriented x3 in no acute distress Extrem Other: Bilateral lower extremity examination shows good capillary refill, no skin lesions noted, normal sensation light touch Left knee examination shows a minimal effusion, palpable crepitus with range of motion, pain with range of motion, no instability Office Procedures Joint Injection/Aspiration Joint Injection/Aspiration Primary Site: left knee Prep: site was prepped using aseptic technique Injected: 40 mg of, DepoMedrol and 1% plain lidocaine Procedure: The patient tolerated the procedure well Coding 63003 - Large joint Procedure code (CPT) selection complete Results Reviewed Results Reviewed: X-rays of the patient's left knee show joint space narrowing, subchondral sclerosis, no acute bony abnormalities Assessment & Plan Assessment & Plan (1) Arthritis of left knee: Code(s): M17.12 - Unilateral primary osteoarthritis, left knee Category: Medical Plan Ms. Franco presents with left knee pain due to degenerative joint disease. I had a lengthy discussion with the patient regarding the treatment options. She wishes to hold off on surgery for as long as possible. I agree with this plan. The risks and benefits of a left knee cortisone injection were discussed at length with the patient. The patient wished to proceed. She tolerated the injection well. She will continue with her home exercise program. She will contact me prior to her follow-up appointment in 3 months should any questions or concerns arise. Feel free to call me at any time should questions regarding her orthopedic management arise. I spent 22 minutes in reviewing the patient's records and imaging studies, seeing the patient and documenting in the medical record. Orders: Orders AMB Joint Injection/Aspiration 05/22/24 M17.12 - Unilateral primary osteoarthritis, left knee Coding Level of Care Code Est Pt Level 3 (62037) Complex EM visit Add On G2211 Diagnoses Arthritis of left knee M17.12 CPT Codes Coding - 70127 Large joint: 29277 - Large joint ([id number])
== END 2024-05-22 10:25 | disposition home or self-care (01) ==
PROVIDERS: PCP Internal Medicine Geriatric Medicine; Visit Provider Orthopaedic Surgery
DX: M17.12 Unilateral primary osteoarthritis, left knee (principal)
CPT/HCPCS: 20610; 99213

== ENCOUNTER → 2024-05-22 09:58 | Outpatient (BNVA) | payer MEDICARE, MEDICAID, SELFPAY | PROVIDERS: PCP Internal Medicine Geriatric Medicine; Visit Provider Orthopaedic Surgery | DX: M17.12 Unilateral primary osteoarthritis, left knee (principal) | CPT/HCPCS: 20610; 99212; J1010; J2003 ==

== ENCOUNTER 2024-05-29 10:11 | Outpatient (AMB) | payer MEDICARE, MEDICAID, SELFPAY ==
--- NOTE | 2024-05-29 10:15 | A.OFFVIS_ITS ---
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 She is doing well with no concerns. Urgency with urination sometimes leakage of urine, she feels she may have prolapse. Seen Dr. Amos in the past was supposed to have a cystoscopy, she reports she chickened out. History of myasthenia gravis. Attempting to eat a healthy diet with calcium and vitamin D, limited exercise with knee pain. Currently not sexually active. Denies any vaginal dryness or irritation. STI testing offered; she declined. Last pap smear; 2021. Last mammogram; 2022. Colonoscopy is UTD. Denies any family history of breast, ovarian or colon cancer. PFS Medical History Frequency of urination Cardiac pacemaker Systolic dysfunction High cholesterol Cardiomegaly History of fibromyalgia Osteoarthritis H/O bipolar disorder Myasthenia gravis Hx of migraine headaches Asthma Surgical History Hx of tubal ligation H/O thymectomy Family History Paternal Grandmother History of breast cancer Social History Alcohol intake: never Patient Tobacco Use Status: Never used Tobacco Female Reproductive History Menstrual Age of Menarche: 12 control method: permanent sterilization Permanent Sterilization: BTL Total pregnancies: 5 Full term: 4 Number of Living Children: 4 Ab spontaneous: 1 Date of last pap smear: 02/08/22 (neg pap and hpv) Date of Mammogram: 03/24/23 (Birad2) Review of Systems Const All systems reviewed & are unremarkable except as noted in HPI and below Reports as per HPI Eyes Reports no additional complaints ENT Reports no additional complaints Card Reports no additional complaints Resp Reports no additional complaints GI Reports as per HPI and Reports no additional complaints Reports as per HPI Musc Reports no additional complaints Skin/Breast Reports as per HPI Neuro Reports no additional complaints Psych Reports no additional complaints Endo Reports no additional complaints Per/Lymph Reports no additional complaints Aller/Immun Reports no additional complaints Physical Exam Vital Signs: Last Vital Signs BP 110/72 05/29/24 10:17 BMI result Body Mass Index 33.3 Const General: cooperative, healthy appearing, no acute distress, well developed and alert Orientation/consciousness: patient oriented x3 HEENT Head: Yes normal to inspection Eyes General: appearance normal, both eyes and all related structures Neck Neck: Yes normal visual inspection Thyroid: Thyroid normal Chest Chest palpation & inspection: normal inspection of the chest, Pacemaker present and other (no puckering, dimpling, peau de orange, retraction, discharge, m asses) Breast/axilla inspection: normal inspection of the breasts Breast/axilla palpation: normal palpation of the breasts Resp Effort & Inspection: normal respiratory effort GI Inspection: Yes normal to inspection Palpation (GI): Soft to palpation Rectal Exam - Female: deferred General: Yes bladder normal to palpation External Female Exam: normal external appearance, normal appearance of the urethra and lesion (Urethral caruncle) Speculum Exam - Vagina: normal appearance of the vagina, normal palpation, normal vaginal discharge and vagina atrophic Speculum Exam - Cervix: normal appearance of the cervix and normal palpation Bimanual exam- vagina & uterus: normal bimanual exam, normal palpation, uterine size normal, bladder normal to palpation, normal palpation and non-tender Bimanual Exam- Adnexa, other: no masses, rectocele, cystocele and Other (Mild prolapse) Skin General skin exam: no rashes or lesions noted Rashes: no rashes Neuro General: patient oriented x3 Cognition (Neuro): normal cognition Extrem General: Yes normal to inspection Psych Attitude: cooperative Thought process: Normal thought process present Assessment & Plan Assessment & Plan (1) Encounter for well woman exam with routine gynecological exam: Code(s): Z01.419 - Encounter for gynecological examination (general) (routine) without abnormal findings Category: Medical Plan Discussed: Current recommendations for pap smears per ASCCP guidelines. Breast awareness, periodic self breast exams and yearly mammogram. Mammogram ordered advised to schedule as soon as possible. Maintain a healthy lifestyle, well balanced diet including Calcium 1,200 mg and Vitamin D 600 IU daily, and routine exercise. Use of condoms for STI prevention if indicated. Strongly recommended to follow up with Dr. Monzon for further evaluation. Also consider pelvic floor therapy due to muscle weakness and symptoms. Information provided for treatment of urethral caruncle. Menopausal.org handout to review provided. Risks and benefits for HRT including association to breast cancer. She wants to consider all her options not really interested at this time and seeing Dr. Amos or having physical therapy. Contact the office with any postmenopausal bleeding. Patient verbalizes understanding and agrees to the plan of care. She was given opportunity to ask questions and all questions were answered to the best of my ability. RTO in 1 year for annual smeller exam. This note is constructed using voice recognition software. 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 Orders: Orders MM tomosynthesis screening BI Today Z12.31 - Encounter for screening mammogram for malignant neoplasm of breast Coding Level of Care Code Est Pt Prev Care 40-64y(46859) Diagnoses Encounter for well woman exam with routine gynecological exam Z01.419
[2024-05-29 10:17] VITALS: BP 110/72; BMI 33.3
== END 2024-05-29 10:56 | disposition home or self-care (01) ==
PROVIDERS: PCP Internal Medicine Geriatric Medicine; Visit Provider Advanced Practice Midwife
DX: Z01.419 Encounter for gynecological examination (general) (routine) without abnormal findings (principal)
CPT/HCPCS: G0101

== ENCOUNTER → 2024-05-29 10:11 | Outpatient (BNVA) | payer MEDICARE, MEDICAID, SELFPAY | PROVIDERS: PCP Internal Medicine Geriatric Medicine; Visit Provider Advanced Practice Midwife | DX: Z01.419 Encounter for gynecological examination (general) (routine) without abnormal findings (principal) | CPT/HCPCS: G0101 ==

== ENCOUNTER 2024-07-06 09:57 | Outpatient (REF) | payer MEDICARE, MEDICAID, SELFPAY ==
--- NOTE | ~2024-07-06 | MM_ITS ---
EXAMINATION: MM SCREENING DIGITAL BREAST TOMOSYNTHESIS, BILATERAL CLINICAL INFORMATION: Screening. Asymptomatic. COMPARISON: Mammography: Comparison is made with available priors TECHNIQUE: Digital breast mammography with tomosynthesis is performed in both the craniocaudal and mediolateral oblique views along with computer-aided detection (CAD). FINDINGS: The breasts are heterogeneously dense, which may obscure small masses (ACR BI-RADS breast composition Category c). Pacemaker overlies and obscures the superior posterior left breast on MLO view. Bilateral marker clips. There are no significant masses, abnormal calcifications, or other abnormalities. MM/MM tomosynthesis screening BI IMPRESSION: No mammographic evidence of malignancy. ASSESSMENT: BI-RADS BI-RADS 2 - Benign Findings RECOMMENDATION: Routine annual mammography screening. 1 year F/U This examination should not preclude the clinical evaluation of a suspicious palpable abnormality. This patient's information was entered into a reminder system with a target due date for their next mammogram. Electronically signed by: Corry Penny DO 07/17/2024 12:22 PM MAHAD
== END 2024-07-06 09:58 | disposition home or self-care (01) ==
LOC: HO.MAMMO 09:57
PROVIDERS: PCP Internal Medicine Geriatric Medicine; Visit Provider Advanced Practice Midwife
DX: Z12.31 Encounter for screening mammogram for malignant neoplasm of breast (principal)
CPT/HCPCS: 77063; 77067

== ENCOUNTER → 2024-07-06 10:30 | Outpatient (BNV) | payer MEDICARE, MEDICAID, SELFPAY | PROVIDERS: PCP Internal Medicine Geriatric Medicine; Visit Provider Internal Medicine | DX: Z12.31 Encounter for screening mammogram for malignant neoplasm of breast (principal) | CPT/HCPCS: 77063; 77067 ==

== ENCOUNTER 2025-03-26 09:08 | Outpatient (REF) | payer MEDICARE, MEDICAID, SELFPAY ==
--- NOTE | ~2025-03-26 | XR_ITS ---
EXAMINATION: XR LUMBOSACRAL SPINE CLINICAL INFORMATION: PAIN COMPARISON: January 26, 2023. TECHNIQUE: AP and lateral views FINDINGS: Mild levoconvex curvature of the thoracolumbar spine. No acute cortical disruption or malalignment. Decreased intervertebral disc height at L5-S1. Mild multilevel endplate sclerosis and small marginal osteophyte formation. Vascular calcifications, aorta. Degenerative changes in the symphysis pubis. Spina bifida occulta. Probable laminectomies L5-S1. XR/XR lumbar spine 2-3V IMPRESSION: Spondylosis L5-S1. Electronically signed by: Bandar Connell MD 03/26/2025 11:03 AM EDT
--- OUTSIDE RECORDS SUMMARY | 2025-03-26 09:32 | XMS_ITS | Encounter Summary ---
Author Organization [facility] Address [address] [place] [address] Care Team Providers Care Concrete Rod Buster Name Role Phone Name, Blayne ENAMORADO Primary Care Provider [phone] Encounter Details Date Type Department Care Team ([facility] st Contact Info) Description 03/24/2025 Telephone [facility] [address] [facility] [address] [place] [id number] Jose Martin Dorman MD [address] [place] [address] Social History Tobacco Use Types Packs/Day Years Used Date Smoking Tobacco: Never Smokeless Tobacco: Never Alcohol Use Standard Drinks/Week Comments No 0 (1 standard drink = 0.6 oz pur e alcohol) Interpersonal Safety Answer Date Record ed Physical Abuse 03/20/2025 Verbal Abuse 03/20/2025 Comments Unknown Sex and Gender Information Value Date Recorded Sex Assigned at Not on file Legal Sex Female 8:28 AM EST Gender Identity Not on file Sexual Orientation Not on file documented as of this encounter Functional Status * Are you deaf or do you have serious difficulty hearing? Answer Date of Assessment Author No 07/08/2024 5:19 PM EST Herminia Lorenzo RN * Are you blind or do you have serious difficulty seeing, even when wearing glasses? Answer Date of Assessment Author No 07/08/2024 5:19 PM EST Herminia Lorenzo RN * Do you have serious difficulty walking or climbing stairs? Answer Date of Assessment Author No 07/08/2024 5:19 PM EST Herminia Lorenzo RN * Do you have serious difficulty dressing or bathing? Answer Date of Assessment Author No 07/08/2024 5:19 PM Herminia Booker RN * Because of a physical, mental, or emotional condition, do you have serious difficulty doing errandsalone such as visiting the doctor? Answer Date of Assessment Author No 07/08/2024 5:19 PM Herminia Booker RN documented as of this encounter Mental Status * Because of a physical, mental, or emotional condition, do you have serious difficulty concentrating, remembering, or making decisions? (5 years old or older) Answer Entry Date Author No 07/08/2024 5:19 PM Herminia Booker RN documented in this encounter Progress Notes * Ramone Franco - 03/24/2025 9:22 AM EDT Hospital Follow Up Diagnosis: Palpitations Hospital: [facility] Consulted by: Dr oDrman Discharged on: 03/22/25 Care team: ELBERT/GARFIELD documented in this encounter Plan of Treatment Upcoming Encounters Date Type Department Care Team (Late st Contact Info) Description 05/06/2025 1:30 PM EDT Office Visit [facility] [address] [facility] [address] [place] [phone] Jose Martin Dorman MD [address] [facility] [address] [place] [address] 03/10/2026 10:00 AM EDT Ancillary Procedure [facility] [address] [facility] [address] [place] [address] documented as of this encounter Visit Diagnoses Not on filedocumented in this encounter Care Teams Concrete Rod Buster Relationship Specialty Start Date End Date Name, MD Blayne [address], [place] PCP - General Internal Medicine 12/20/18 documented as of this encounter
--- OUTSIDE RECORDS SUMMARY | 2025-03-26 09:32 | XMS_ITS ---
Author Name [facility] Organization Unknown Care Team Organization Name Specialty Phone Email Start Date End Da zahra [facility] 12/19/2022 04/01/2024
--- OUTSIDE RECORDS SUMMARY | 2025-03-26 09:32 | XMS_ITS | Clinical Summary ---
Author Organization [facility] Address [address] [place] [address] Care Team Providers Care Clipper Machine Operator Name Role Phone Unavailable Primary Care Provider Unavailabl e Source Comments PLEASE NOTE, if this patient is a minor, it may be UNLAWFUL to discuss sensitive information that is contained in these records (such as FAMILY PLANNING, MENTAL HEALTH or SUBSTANCE ABUSE) with the minor patient's parent or other person without the patient's specific authorization.[facility] Medications No known medications Active Problems No known active problems Social History Tobacco Use Types Packs/Day Years Used Date Smoking Tobacco: Never Smokeless Tobacco: Never Tobacco Cessation:Counseling Given: Not Answered Alcohol Use Standard Drinks/Week Comments Never 0 (1 standard drink = 0.6 oz pur e alcohol) Social Connections Answer Date Recorded Connectedness 0 04/26/2024 Financial Resource Strain Answer Date R ecorded Financial Resource Strain 0 2022 Stress Answer Date Recorded Stress 0 11/05/2022 Physical Activity Answer Date Recorded Physical Activity 0 11/05/2022 Food Insecurity Answer Date Recorded Food 0 05/09/2024 Transportation Needs Answer Date Record ed Transportation 0 11/05/2022 Housing Stability Answer Date Recorded Housing 0 11/05/2022 Safety and Environment Answer Date Adilson rded Safety 0 11/05/2022 Utilities Answer Date Recorded Utilities 0 11/05/2022 Employment Answer Date Recorded Stress 0 04/26/2024 Comments Unknown Sex and Gender Information Value Date Recorded Sex Assigned at Not on file Legal Sex Female 10:16 AM PDT Gender Identity Not on file Sexual Orientation Not on file Last Filed Vital Signs Vital Sign Reading Time Taken Comments Blood Pressure 135/74 06/20/2024 1:35 PM EST Pulse 72 06/20/2024 1:35 PM EST Temperature - - Respiratory Rate - - Oxygen Saturation - - Inhaled Oxygen Concentration - - Weight - - Height - - Body Mass Index - - Plan of Treatment Health Maintenance Due Date Last Done Comments Anxiety Screening 1960 Dental Perio Charting 1960 Dental Prophy 1960 HPV Screening 1960 Hepatitis C Screening 1960 Pap + HPV 1960 HIV Screening 12/07/1975 Cervical Cancer Screening 1981 Pap Smear 1981 Breast Cancer Screening (Mammogram) 2000 CT Colonography 2005 Colonoscopy 2005 Colorectal Cancer Screening 2005 FIT/gFOBT 2005 Fecal DNA 2005 Flexible Sigmoidoscopy 2005 Imm-Pneumococcal 50+ (2 of 2 - PCV) 2010 07/16/2007 Imm-Zoster, Recombinant (1 of 2) 2010 Dental BW 11/08/2023 11/05/2022 Dental Examination 11/08/2023 11/05/2022 [id number] (3 - season) 2024 021, 12/18/2020 Alcohol and Drug Screen 08/14/2024 Depression Annual Screen 08/14/2024 Imm-Influenza (#1) 2025 05/16/2024, 1 09/25/2022, 06/28/2021, Additional history exists Tobacco Screening 05/30/2025 05/30/2024 Hypertension Screening (#1) 06/20/2025 Diabetes Screening 10/07/2027 10/07/2024, 1 09/07/2023, 01/05/2023, Additional history exists Dental FMX/Pano 11/08/2027 11/05/2022 Lipid Screening 01/22/2029 01/23/2024, 04/1 08/2022, 04/27/2022, Additional history exists Imm-DTaP/Tdap/Td (4 - Td or Tdap) 07/25/2033 07/25/2023, 03/21/2011, 04/10/2006 Cervical Ablation/Cold-Knife Conization Discontinued Cervical Cryotherapy Discontinued Colposcopy Discontinued Endometrial Biopsy Discontinued Excision/Leep Discontinued HPV Genotyping Discontinued Vaginal Pap Discontinued Vulvoscopy Discontinued Procedures Procedure Name Priority Date/Time Associated Diagnosis Comments Full INTRAORAL - COMP SERIES OF RADIOGRAPHIC IMAGES Routine 11/05/2022 11:40 AM EDT Caries Full COMP ORAL EVALUATION - NEW/ESTABLISHED PATIENT Routine 11/05/2022 11:40 AM EDT Caries from Last 3 Months or Most Recently Relevant to Health Maintenance Insurance [place] MED[place] DENTAL
--- OUTSIDE RECORDS SUMMARY | 2025-03-26 09:32 | XMS_ITS | Encounter Summary ---
Author Organization [facility] Address [address] [place] [address] [address] [address] Care Team Providers Care Cigar Inspector Name Role Phone NameBlayne MD Primary Care Provider [phone] Reason for Visit * Reason Comments Med Refill Encounter Details Date Type Department Care Team (Late st Contact Info) Description 01/02/2023 Refill [facility] MEDICINE [address] [place] [id number] Mary Tomlinson FNP Social History Tobacco Use Types Packs/Day Years Used Date Smoking Tobacco: Never Smokeless Tobacco: Never Depression Answer Date Recorded Patient Health Questionnaire-9 Score 0 11/22/2022 Depression Answer Date Recorded Patient Health Questionnaire-2 Score 0 11/22/2022 Comments Unknown Sex and Gender Information Value Date Recorded Sex Assigned at Female 06/13/2022 10:29 AM EDT Legal Sex Female 10:29 AM EDT Gender Identity Female 06/13/2022 10:29 AM EDT Sexual Orientation Straight 06/13/2022 10 :29 AM EDT documented as of this encounter Plan of Treatment Upcoming Encounters Date Type Department Care Team (Late st Contact Info) Description 04/03/2025 10:00 AM EDT Office Visit [facility] MEDICINE [address] [place] [id number] Blayne Gaytan MD [address] [place] [phone] 06/02/2025 10:15 AM EDT Office Visit [facility] MEDICINE [address] [place] [phone] Blayne Gaytan MD [address] [place] [address] documented as of this encounter Visit Diagnoses Not on filedocumented in this encounter Additional Health Concerns Assessment Noted Time PHQ-9 Depression Total Score: 0 11/23/19 23 10:22 AM EDT documented as of this encounter Care Teams Cigar Inspector Relationship Specialty Start Date End Date Name, MD Blayne [address] [place] [address] PCP - General Family Medicine 10/02/15 Radha Hemphill business objects report developer 09/08/23 11/12/23 documented as of this encounter
== END 2025-03-26 09:09 | disposition home or self-care (01) ==
LOC: HO.HHCX 09:08
PROVIDERS: PCP Internal Medicine Geriatric Medicine; Visit Provider Internal Medicine Geriatric Medicine
DX: M54.50 Low back pain, unspecified (principal)
CPT/HCPCS: 72100

== ENCOUNTER → 2025-03-26 09:16 | Outpatient (BNV) | payer MEDICARE, MEDICAID, SELFPAY | PROVIDERS: PCP Internal Medicine Geriatric Medicine; Visit Provider Radiology Diagnostic Radiology | DX: M47.817 Spondylosis without myelopathy or radiculopathy, lumbosacral region (principal) | CPT/HCPCS: 72100 ==